=== PATIENT | female | born 1985 | race Caucasian/White ===

== ENCOUNTER 2017-09-20 16:28 | Emergency (ER) | payer SELFPAY ==
[~2017-09-20] VITALS: Ht 157.5 cm; Wt 56.7 kg
[~2017-09-20 16:28] MED LIST: ACHD5005 PO; AZIT-21 PO; BUTA1TAB55 PO; HYDR-3583; TRAM-21 PO
--- NOTE | 2017-09-20 17:45 | ED General ---
General Chief Complaint: General Problems/Pain Stated Complaint: BACK AND RIB PAIN Nursing Triage Note: AMB TO ROOM REPORTS SHE HAS HAD COUGH FOR 2MONTHS 2 WEEKS AGO SAW [facility] TOLD IT WAS A VIRUS HAS BEEN USING INHALER. LAST NIGHT WAS COUGHING SO HARD FELT POP IN BACK. Nursing Sepsis Screen: No Definite Risk Source of Information: Patient Exam Limitations: No Limitations History of Present Illness Date Seen by Provider: Sep 20, 2017 Time Seen by Provider: 17:44 Initial Comments To ER with a nonproductive cough without fever for 2 months. Last night the cough is rather intense and she felt pain on the posterolateral chest. Timing/Duration: 1-2 Days Severity: Moderate Associated Systoms: Cough Allergies and Home Medications Allergies Coded Allergies: Penicillins (Unverified Allergy, Mild, 02/20/09) penicillin G (Verified Allergy, Unknown, 09/01/05) sulfamethoxazole (Verified Allergy, Unknown, 09/20/17) trimethoprim (Verified Allergy, Unknown, 09/20/17) Home Medications No Active Prescriptions or Reported Meds Constitutional: see HPI EENTM: see HPI Respiratory: see HPI, cough Cardiovascular: no symptoms reported Genitourinary: no symptoms reported Musculoskeletal: see HPI Skin: no symptoms reported Psychiatric/Neurological: No Symptoms Reported Hematologic/Lymphatic: No Symptoms Reported Past Sqrnnjq-Mcexsb-Ttxtty Hx Patient Social History Alcohol Use: Denies Use Recreational Drug Use: No Smoking Status: Current Everyday Smoker Recent Foreign Travel: No Contact w/Someone Who Travel: No Recent Infectious Disease Expo: No Immunizations Up To Date Tetanus Booster (TDap): Less than 5yrs Seasonal Allergies Seasonal Allergies: No Surgeries History of Surgeries: Yes (L KNEE FLUID REMOVAL, ) Surgeries: Hysterectomy, Oophorectomy Respiratory History of Respiratory Disorde: No Cardiovascular History of Cardiac Disorders: No Neurological History of Neurological Disord: No Reproductive System Hx Reproductive Disorders: No Sexually Transmitted Disease: No HIV/AIDS: No Female Reproductive Disorders: Ovarian 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 Gastrointestinal History of Gastrointestinal Di: No Musculoskeletal History of Musculoskeletal Dis: No Endocrine History of Endocrine Disorders: No Cancer History of Cancer: No Psychosocial History of Psychiatric Problem: No Integumentary History of Skin or Integumenta: No Blood Transfusions History of Blood Disorders: No Adverse Reaction to a Blood Tr: No Physical Exam Vital Signs Vital Signs - First Documented 09/20/17 16:29 Temp 99.2 Pulse 82 Resp 18 B/P (MAP) 128/92 (104) Pulse Ox 98 Capillary Refill : Less Than 3 Seconds General Appearance: No Apparent Distress, WD/WN Eyes: Bilateral Eye Normal Inspection, Bilateral Eye PERRL, Bilateral Eye EOMI HEENT: PERRL/EOMI, TMs Normal Neck: Full Range of Motion, Normal Inspection Respiratory: Normal Breath Sounds, No Accessory Muscle Use, No Respiratory Distress Cardiovascular: Regular Rate, Rhythm, Normal Peripheral Pulses Gastrointestinal: Normal Bowel Sounds, Non Tender, Soft Extremity: Normal Capillary Refill, No Calf Tenderness Neurologic/Psychiatric: Alert, Oriented x3 Skin: Normal Color, Warm/Dry Progress/Results/Core Measures Suspected Sepsis Recent Fever Within 48 Hours: No Infection Criteria Present: None New/Unexplained Altered Menta: No Sepsis Screen: No Definite Risk Sepsis Diagnosis: SIRS Temperature:99.2 Pulse: 82 Respiratory Rate: 18 Blood Pressure 128 /92 Mean: 104 Results/Orders My Orders Orders - GERALD ESTRADA APRN Ribs/Unilateral With Chest (09/20/17 17:26) Vital Signs/I&O Vital Sign - Last 12Hours 09/20/17 16:29 Temp 99.2 Pulse 82 Resp 18 B/P (MAP) 128/92 (104) Pulse Ox 98 Capillary Refill : Less Than 3 Seconds Blood Pressure Mean: 104 Diagnostic Imaging Diagonstic Imaging: Xray Plain Films/CT/US/NM/MRI: chest Comments NAME: YENY CARR MED REC#: [id number] PT STATUS: REG ER : 1985 PHYSICIAN: GERALD ESTRADA APRN ADMIT DATE: 09/20/17/ER Draft Date of Exam:09/20/17 RIBS/UNILATERAL WITH CHEST INDICATION: Right-sided rib pain x1 day with cough. TECHNIQUE: Single view chest along with 3 views of right ribs at 6:08 PM. CORRELATION STUDY: 06/06/2012 FINDINGS: The heart size, mediastinal configuration and pulmonary vascularity are within normal limits. The lungs are clear with no consolidating infiltrate. There is no significant effusion or pneumothorax. No acute displaced right rib fracture. IMPRESSION: 1. No radiographic findings to suggest acute abnormality of the chest. 2. Negative for right rib fracture. Dictated on workstation # [id number] Dict: 09/20/17 1804 Trans: 09/20/17 1817 [facility] [id number] Interpreted by: MISSY SALOMON DO Electronically signed by: Departure Impression Impression: Primary Impression: Chest wall pain Disposition: HOME, SELF-CARE Condition: Stable Departure-Patient Inst. Decision time for Depature: 18:19 Referrals: RAE BOYLE MD (PCP) Primary Care Physician Patient Instructions: Pleuritic Chest Pain (DC) Add. Discharge Instructions: 1. Medication as directed 2. Return to ER for any concerns 3. Follow-up with her doctor next week All discharge instructions reviewed with patient and/or family. Voiced understanding. Scripts Benzonatate (Tessalon Perle) 100 Mg Capsule 100 MG PO TID, #15 CAP Prov: GERALD ESTRADA APRN 09/20/17 Naproxen Sodium (Anaprox Ds) 550 Mg Tablet 550 MG PO BID Y for PAIN-MODERATE, #20 TAB Prov: GERALD ESTRADA APRN 09/20/17 GERALD ESTRADA APRN Sep 20, 2017 17:45
--- NOTE | 2017-09-20 18:17 | Diagnostic Imaging Report ---
INDICATION: Right-sided rib pain x1 day with cough. TECHNIQUE: Single view chest along with 3 views of right ribs at 6:08 PM. CORRELATION STUDY: 06/06/2012 FINDINGS: The heart size, mediastinal configuration and pulmonary vascularity are within normal limits. The lungs are clear with no consolidating infiltrate. There is no significant effusion or pneumothorax. No acute displaced right rib fracture. IMPRESSION: 1. No radiographic findings to suggest acute abnormality of the chest. 2. Negative for right rib fracture. Dictated by: Dictated on workstation # [id number]
[2017-09-20] MEDS ORDERED: BENZ-13 PO (18:21)
[2017-09-20] MEDS ORDERED: NAPR-1070 PO (18:21)
[2017-09-20 19:08] VITALS: BP 108/73
== END 2017-09-20 19:08 | disposition home or self-care (01) ==
LOC: EDUNIT# 16:28 → ER 16:30
DX: R07.89 Other chest pain (principal); F17.200 Nicotine dependence, unspecified, uncomplicated; Z88.0 Allergy status to penicillin; Z90.710 Acquired absence of both cervix and uterus; Z87.448 Personal history of other diseases of urinary system; Z88.2 Allergy status to sulfonamides; Z88.8 Allergy status to other drugs, medicaments and biological substances
CPT/HCPCS: 71101

== ENCOUNTER 2018-04-07 19:50 | Emergency (ER) | payer OTHER ==
[~2018-04-07] VITALS: Ht 157.5 cm; Wt 63.5 kg
[~2018-04-07 19:50] MED LIST changes: +BENZ100C18 PO; +NAPR-1070 PO
[2018-04-07] MEDS ORDERED: NS IV 1000 ML 1,000 ML IV SCH (20:00)
[2018-04-07 20:57] LABS: BASOPHILS # (AUTO) 0.1 10^3/uL (0.0-0.1); BASOPHILS % (AUTO) 1 % (0-10); EOSINOPHILS # (AUTO) 0.4 10^3/uL (0.0-0.3); EOSINOPHILS % (AUTO) 4 % (0-10); HEMATOCRIT 41 % (35-52); HEMOGLOBIN 14.6 G/DL (11.5-16.0); LYMPHOCYTES # (AUTO) 2.5 X 10^3 (1.0-4.0); LYMPHOCYTES % (AUTO) 23 % (12-44); MEAN CORPUSCULAR HEMOGLOBIN 33 PG (25-34); MEAN CORPUSCULAR HGB CONC 35 G/DL (32-36); MEAN CORPUSCULAR VOLUME 92 FL (80-99); MEAN PLATELET VOLUME 8.2 FL (7.4-10.4); MONOCYTES # (AUTO) 0.9 X 10^3 (0.0-1.0); MONOCYTES % (AUTO) 8 % (0-12); NEUTROPHILS # (AUTO) 6.8 X 10^3 (1.8-7.8); NEUTROPHILS % (AUTO) 64 % (42-75); PLATELET COUNT 309 10^3/uL (130-400); RED BLOOD COUNT 4.48 10^6/uL (4.35-5.85); RED CELL DISTRIBUTION WIDTH 12.2 % (10.0-14.5); WHITE BLOOD COUNT 10.7 10^3/uL (4.3-11.0)
--- NOTE | 2018-04-07 20:58 | Diagnostic Imaging Report ---
PROCEDURE: CT head and CT cervical spine without contrast. TECHNIQUE: Multiple contiguous axial images were obtained through the brain and cervical spine without the use of intravenous contrast. Sagittal and coronal reformations through the cervical spine were then performed. DATE: April 07, 2018. COMPARISON: None. INDICATION: 32-year-old female, syncope. Headache, confusion, dizziness. Neck pain. FINDINGS: There is an area of masslike CSF attenuation extra-axial in location in the region of the left anterior middle cranial fossa most likely reflecting an arachnoid cyst. The ventricles and cerebral spinal fluid spaces are of normal size and configuration for the patient's age. There is no mass effect or midline shift. There is no acute intracranial hemorrhage. There is no abnormal extra-axial fluid collection. The visualized portions of the paranasal sinuses, mastoid air cells and middle ears are well aerated. There is no identified facet joint subluxation or dislocation. There is no asymmetric widening of the cervical disc spaces. There is no pronounced cervical disc height loss. CT is limited for assessment of disc pathology as well as additional non-bony causes of foraminal and spinal stenosis. There is no prevertebral soft tissue swelling. There is no identified fracture of the cervical spine. The visualized portions of the lung apices are clear. IMPRESSION: 1. No identified acute intracranial abnormality. 2. No identified acute abnormality of the cervical spine. 3. Left anterior middle cranial fossa arachnoid cyst. Dictated by: Dictated on workstation # [id number]
[2018-04-07 21:16] LABS: ALBUMIN 4.3 GM/DL (3.2-4.5); BILIRUBIN,TOTAL 0.4 MG/DL (0.1-1.0); CALCIUM 9.3 MG/DL (8.5-10.1); CREATININE SERUM 1.29 MG/DL (0.60-1.30); POTASSIUM 4.6 MMOL/L (3.6-5.0)
--- NOTE | 2018-04-07 21:45 | ED Syncope ---
General Chief Complaint: Dizziness/Syncope Stated Complaint: FALL Nursing Triage Note: PT BROUGHT IN BY EMS FROM [facility] WITH COMPLAINT OF SYNCOPABLE EPISODE. PT WAS STANDING AT COUNTER, PASSED OUT AND WOKE UP ON FLOOR. PT IS COMPLAINING OF HEADACHE. STATES SHE WAS DIZZY PRIOR TO PASSING OUT. Source of Information: Patient Exam Limitations: No Limitations History of Present Illness Date Seen by Provider: Apr 07, 2018 Time Seen by Provider: 19:50 Initial Comments The patient is a 32 year old female who was brought in to the emergency room by [facility] after she was standing in line at [facility] when she passed out. She is in a c-collar in arrival to the emergency room complaining of head, neck pain. She reports being dizzy prior to passing out today. Denies being dizzy now. Timing/Prior Episodes: No Prior History Symptoms Prior to Episode: Other (Dizzy ) Current Symptoms: Headache, Other (neck pain) Allergies and Home Medications Allergies Coded Allergies: Penicillins (Unverified Allergy, Mild, 02/20/09) penicillin G (Verified Allergy, Unknown, 09/01/05) sulfamethoxazole (Verified Allergy, Unknown, 09/20/17) trimethoprim (Verified Allergy, Unknown, 09/20/17) Home Medications Benzonatate 100 Mg Capsule, 100 MG PO TID Prescribed by: GERALD ESTRADA on 09/20/171820 Naproxen Sodium 550 Mg Tablet, 550 MG PO BID PRN for PAIN-MODERATE Prescribed by: GERALD ESTRADA on 09/20/171820 Patient Home Medication List Home Medication List Reviewed: Yes Review of Systems Constitutional: see HPI; No chills, No fever Musculoskeletal: see HPI, neck pain Psychiatric/Neurological: See HPI, Headache All Other Systems Reviewed Negative Unless Noted: Yes Past Aixkwow-Eknocz-Iuzjqc Hx Past Med/Social Hx: Reviewed Nursing Past Med/Soc Hx Patient Social History Alcohol Use: Denies Use Recreational Drug Use: No Smoking Status: Current Everyday Smoker Type Used: Cigarettes Recent Foreign Travel: No Contact w/Someone Who Travel: No Recent Infectious Disease Expo: No Immunizations Up To Date Tetanus Booster (TDap): Less than 5yrs Seasonal Allergies Seasonal Allergies: No Past Medical History Surgeries: Yes (L KNEE FLUID REMOVAL, ) Hysterectomy, Oophorectomy Respiratory: No Cardiac: No Neurological: No Reproductive Disorders: No Female Reproductive Disorders: Ovarian 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 oz. [id number]; BMI Method:Stated General Appearance: No Apparent Distress, WD/WN HEENT: PERRL/EOMI, TMs Normal, Normal ENT Inspection, Pharynx Normal Neck: Normal Inspection, Supple, Tender Midline, Other (C-collar in place) Cardiovascular: Regular Rate, Rhythm, No Edema, No Gallop, No JVD, No Murmur, Normal Peripheral Pulses Respiratory: Chest Non Tender, Lungs Clear, Normal Breath Sounds, No Accessory Muscle Use, No Respiratory Distress Gastrointestinal: Normal Bowel Sounds, No Organomegaly, No Pulsatile Mass, Non Tender, Soft Neurologic/Psychiatric: Alert, Oriented x3, Normal Mood/Affect Cranial Nerves: Normal Hearing, Normal Speech, PERRL Coordination/Gait: Normal Finger to Nose Motor/Sensory: No Motor Deficit, No Sensory Deficit Skin: Normal Color, Warm/Dry Progress/Results/Core Measures Results/Orders Lab Results Laboratory Tests Test 04/07/18 20:50 Range/Units White Blood Count 10.7 4.3-11.0 10^3/uL Red Blood Count 4.48 4.35-5.85 10^6/uL Hemoglobin 14.6 11.5-16.0 G/DL Hematocrit 41 35-52 % Mean Corpuscular Volume 92 80-99 FL Mean Corpuscular Hemoglobin 33 25-34 PG Mean Corpuscular Hemoglobin Concent 35 32-36 G/DL Red Cell Distribution Width 12.2 10.0-14.5 % Platelet Count 309 130-400 10^3/uL Mean Platelet Volume 8.2 7.4-10.4 FL Neutrophils (%) (Auto) 64 42-75 % Lymphocytes (%) (Auto) 23 12-44 % Monocytes (%) (Auto) 8 0-12 % Eosinophils (%) (Auto) 4 0-10 % Basophils (%) (Auto) 1 0-10 % Neutrophils # (Auto) 6.8 1.8-7.8 X 10^3 Lymphocytes # (Auto) 2.5 1.0-4.0 X 10^3 Monocytes # (Auto) 0.9 0.0-1.0 X 10^3 Eosinophils # (Auto) 0.4 H 0.0-0.3 10^3/uL Basophils # (Auto) 0.1 0.0-0.1 10^3/uL Sodium Level 136 135-145 MMOL/L Potassium Level 4.6 3.6-5.0 MMOL/L Chloride Level 103 98-107 MMOL/L Carbon Dioxide Level 21 21-32 MMOL/L Anion Gap 12 5-14 MMOL/L Blood Urea Nitrogen 14 7-18 MG/DL Creatinine 1.29 0.60-1.30 MG/DL Estimat Glomerular Filtration Rate 47 BUN/Creatinine Ratio 11 Glucose Level 96 70-105 MG/DL Calcium Level 9.3 8.5-10.1 MG/DL Corrected Calcium 9.1 8.5-10.1 MG/DL Total Bilirubin 0.4 0.1-1.0 MG/DL Aspartate Amino Transf (AST/SGOT) 12 5-34 U/L Alanine Aminotransferase (ALT/SGPT) 13 0-55 U/L Alkaline Phosphatase 65 40-136 U/L Total Protein 7.0 6.4-8.2 GM/DL Albumin 4.3 3.2-4.5 GM/DL My Orders Orders - PERLA BENAVIDES Ct Head/Cervical Spine Wo (04/07/18 19:57) Ns Iv 1000 Ml (Sodium Chloride 0.9%) (04/07/18 20:00) Comprehensive Metabolic Panel (04/07/18 19:57) Saline Lock/Iv-Start (04/07/18 19:57) Cbc With Automated Diff (04/07/18 19:57) Ekg Tracing (04/07/18 19:57) Vital Signs/I&O 04/07/18 04/07/18 19:54 21:47 Pulse 104 88 Resp 20 20 B/P (MAP) 118/82 (94) 115/78 (94) Pulse Ox 100 100 O2 Delivery Room Air Blood Pressure Mean: 94 Progress Progress Note : Time: 21:40 Progress Note I have seen and evaluated the patient. C-Collar was removed at this time. I have informed her of imaging and laboratory findings. She is to follow up in regards to the finding of the cyst with PCP to further evaluate the findings. She agrees with plan of care, return precautions were given. EKG : EKG Time: 20:03 Rate: 93 Rhythm: Normal Sinus Intervals: Normal ECG Comparisson: No Previous ECG Available ECG Impression: Normal Comment Reviewed by Dr. Rivero. Diagnostic Imaging Diagonstic Imaging: CT Plain Films/CT/US/NM/MRI: c-spine, head Comments NAME: YENY CARR [facility] REC#: [id number] PHYSICIAN: PERLA BENAVIDES CC: PERLA BENAVIDES; VU BECK MD Page 2 of 2 RADIOLOGY REPORT VIA [facility], [place], [place] CC: PERLA BENAVIDES; VU BECK MD Page 1 of 1 RADIOLOGY REPORT NAME: YENY CARR [facility] REC#: [id number] PT STATUS: REG ER : 1985 PHYSICIAN: PERLA BENAVIDES ADMIT DATE: 04/07/18/ER Signed Date of Exam: 04/07/18 CT HEAD/CERVICAL SPINE WO PROCEDURE: CT head and CT cervical spine without contrast. TECHNIQUE: Multiple contiguous axial images were obtained through the brain and cervical spine without the use of intravenous contrast. Sagittal and coronal reformations through the cervical spine were then performed. DATE: April 07, 2018. COMPARISON: None. INDICATION: 32-year-old female, syncope. Headache, confusion, dizziness. Neck pain. FINDINGS: There is an area of masslike CSF attenuation extra-axial in location in the region of the left anterior middle cranial fossa most likely reflecting an arachnoid cyst. The ventricles and cerebral spinal fluid spaces are of normal size and configuration for the patient's age. There is no mass effect or midline shift. There is no acute intracranial hemorrhage. There is no abnormal extra-axial fluid collection. The visualized portions of the paranasal sinuses, mastoid air cells and middle ears are well aerated. There is no identified facet joint subluxation or dislocation. There is no asymmetric widening of the cervical disc spaces. There is no pronounced cervical disc height loss. CT is limited for assessment of disc pathology as well as additional non-bony causes of foraminal and spinal stenosis. There is no prevertebral soft tissue swelling. There is no identified fracture of the cervical spine. The visualized portions of the lung apices are clear. IMPRESSION: 1. No identified acute intracranial abnormality. 2. No identified acute abnormality of the cervical spine. 3. Left anterior middle cranial fossa arachnoid cyst. Dictated by: Dictated on workstation # [id number] Dict: 04/07/182048 Trans: 04/07/182145 Interpreted by: VU BECK MD Electronically signed by: VU BECK MD 04/07/182145 Reviewed: Reviewed by Me Departure Impression Primary Impression: Syncope Disposition: 01 HOME, SELF-CARE Condition: Stable Departure-Patient Inst. Decision time for Depature: 21:44 Referrals: RAE BOYLE MD (PCP) Primary Care Physician Patient Instructions: Syncope (Fainting) (DC) Add. Discharge Instructions: Follow-up with Dr. Boyle regarding your CT findings within 1 week. Return back to the emergency room should you have any other similar symptoms or any other concerns as needed. All discharge instructions reviewed with patient and/or family. Voiced understanding. PERLA BENAVIDES Apr 07, 2018 21:45
[2018-04-07 21:47] VITALS: BP 115/78
== END 2018-04-07 21:47 | disposition home or self-care (01) ==
LOC: EDUNIT# 19:50 → ER 19:52
DX: R55 Syncope and collapse (principal); R51 Headache; F17.210 Nicotine dependence, cigarettes, uncomplicated; Z87.448 Personal history of other diseases of urinary system; Z90.710 Acquired absence of both cervix and uterus; Z88.0 Allergy status to penicillin; Z88.2 Allergy status to sulfonamides; Z88.8 Allergy status to other drugs, medicaments and biological substances
CPT/HCPCS: 36415; 70450; 72125; 80053; 85025; 93005

== ENCOUNTER → 2018-04-16 | Outpatient (CLI) | payer OTHER ==
[~2018-04-16] MED LIST changes: +GADOBUTROL 7.5 MMOL/7.5 ML (GADAVIST) VIAL IV ONE
--- NOTE | 2018-04-16 09:44 | Diagnostic Imaging Report ---
PROCEDURE: MR imaging of the brain with and without contrast. TECHNIQUE: Multiplanar, multisequence MR imaging of the brain was performed with and without contrast. INDICATION: Fainting episode one week ago. The ventricles and sulci are within normal limits. There is a CSF signal intensity lesion along the left anterior temporal convexity measuring 3.0 x 1.0 cm consistent with an arachnoid cyst. This is similar to the CT study of the brain performed on 04/07/2018. No midline shift is seen. The normal expected flow-void within the carotid siphons are seen. No diffusion restriction is identified. There is no acute intra-axial or extra-axial hemorrhage. No abnormal enhancement following contrast administration is seen. The corpus callosum is unremarkable. The sella and parasellar structures are unremarkable. IMPRESSION: Essentially unremarkable pre-and postcontrast MRI of the brain with exception of an arachnoid cyst along the left anterior temporal convexity. No acute feature is detected. Dictated by: Dictated on workstation # [id number]
== END ==
LOC: RAD 08:34
PROVIDERS: ATTEND Family Medicine
DX: G93.0 Cerebral cysts (principal)
CPT/HCPCS: 70553

== ENCOUNTER 2019-05-26 13:45 | Emergency (ER) | payer SELFPAY ==
[~2019-05-26] VITALS: Ht 157.4 cm; Wt 52.8 kg
[~2019-05-26 13:45] MED LIST changes: -GADOBUTROL 7.5 MMOL/7.5 ML (GADAVIST) VIAL IV ONE
[2019-05-26 14:16] LABS: BILIRUBIN,URINE NEGATIVE (NEGATIVE); CLARITY,URINE CLEAR; COLOR,URINE YELLOW; GLUCOSE, URINE (UA) NEGATIVE (NEGATIVE); KETONES,URINE NEGATIVE (NEGATIVE); LEUKOCYTE ESTERASE ,URINE 1+ (NEGATIVE); NITRITE,URINE NEGATIVE (NEGATIVE); PH,URINE 6 (5-9); PROTEIN,URINE 2+ (NEGATIVE)
[2019-05-26 14:18] LABS: BASOPHILS # (AUTO) 0.1 10^3/uL (0.0-0.1); BASOPHILS % (AUTO) 1 % (0-10); EOSINOPHILS # (AUTO) 0.4 10^3/uL (0.0-0.3); EOSINOPHILS % (AUTO) 4 % (0-10); HEMATOCRIT 43 % (35-52); HEMOGLOBIN 14.7 G/DL (11.5-16.0); LYMPHOCYTES % (AUTO) 20 % (12-44); MEAN CORPUSCULAR HEMOGLOBIN 32 PG (25-34); MEAN CORPUSCULAR HGB CONC 34 G/DL (32-36); MEAN CORPUSCULAR VOLUME 93 FL (80-99); MEAN PLATELET VOLUME 8.4 FL (7.4-10.4); MONOCYTES # (AUTO) 0.8 X 10^3 (0.0-1.0); MONOCYTES % (AUTO) 8 % (0-12); NEUTROPHILS # (AUTO) 6.8 X 10^3 (1.8-7.8); NEUTROPHILS % (AUTO) 68 % (42-75); PLATELET COUNT 299 10^3/uL (130-400); WHITE BLOOD COUNT 10.1 10^3/uL (4.3-11.0)
[2019-05-26] MEDS ORDERED: NS IV 1000 ML 1,000 ML IV SCH (14:27)
[2019-05-26 14:28] LABS: BACTERIA,URINE MODERATE /HPF
[2019-05-26] MEDS ORDERED: LIDOCAINE 2% VISCOUS 15 ML UDC PO ONE (14:30)
[2019-05-26] MEDS ORDERED: ANTACID SUSP 30 ML UDC (MYLANTA) PO ONE (14:30)
[2019-05-26 14:43] LABS: ALANINE AMINOTRANSFERASE 9 U/L (0-55); ALBUMIN 3.7 GM/DL (3.2-4.5); ALKALINE PHOSPHATASE 52 U/L (40-136); BILIRUBIN,TOTAL 0.3 MG/DL (0.1-1.0); BUN/CREATININE RATIO 9; CALCIUM 8.5 MG/DL (8.5-10.1); CARBON DIOXIDE 25 MMOL/L (21-32); CHLORIDE 102 MMOL/L (98-107); CREATININE SERUM 0.86 MG/DL (0.60-1.30); GFR ESTIMATED > 60; GLUCOSE 119 MG/DL (70-105); POTASSIUM 3.5 MMOL/L (3.6-5.0); SODIUM 137 MMOL/L (135-145); TOTAL PROTEIN 6.1 GM/DL (6.4-8.2)
--- NOTE | 2019-05-26 14:43 | ED GI ---
General Chief Complaint: Abdominal/GI Problems Stated Complaint: CHEST/ESOPHAGUS PAIN/VOMITING Nursing Triage Note: EPIGASTRIC PAIN WITH VOMITING FOR 1.5 WEEKS THAT IS NOT GETTING BETTER. PT STATES SHE HAS BEEN TRYING HERSELF FOR ACID REFLUX BUT THINKS IT MIGHT BE SOMETHING ELSE. Sepsis Screen: No Definite Risk History of Present Illness Date Seen by Provider: May 26, 2019 Time Seen by Provider: 14:00 Initial Comments 33-year-old female presents for approximately 2 week history of acid reflux. She has tried Pepto-Bismol she has not tried any H2 blockers or PPIs. She reports occasional vomiting. She has had a previous appendectomy, gallbladder still intact. She tolerates clear liquids. She reports using marijuana daily. She normally smokes one pack of cigarettes daily, however she's been actually a fourth of a pack since GI symptoms began. She did have a colonoscopy approximately 14 years ago and was told he had polyps. She's had no follow-up colonoscopy. Timing/Duration: 1 Week, Intermittent Severity/Quality: Mild Location: Epigastric Associated Symptoms: Heartburn, Nausea/Vomiting Allergies and Home Medications Allergies Coded Allergies: Penicillins (Unverified Allergy, Mild, 02/20/09) penicillin G (Verified Allergy, Unknown, 09/01/05) sulfamethoxazole (Verified Allergy, Unknown, 09/20/17) trimethoprim (Verified Allergy, Unknown, 09/20/17) Home Medications Ciprofloxacin HCl 500 Mg Tablet, 500 MG PO BID Prescribed by: ELOISE AMARO on 05/26/19 1503 Famotidine 40 Mg Tablet, 40 MG PO HS Prescribed by: ELOISE AMARO on 05/26/19 1502 Pantoprazole Sodium 40 Mg Tablet.dr, 40 MG PO DAILY Prescribed by: ELOISE AMARO on 05/26/19 1502 Patient Home Medication List Home Medication List Reviewed: Yes Review of Systems Review of Systems Constitutional: no symptoms reported, see HPI Gastrointestinal: See HPI, Abdominal Pain; Denies Constipated, Denies Diarrhea, Denies Difficulty Swallowing; Nausea, Poor Appetite; Denies Poor Fluid Intake, Denies Rectal Bleeding; Vomiting All Other Systems Reviewed Negative Unless Noted: Yes Past Vhbhwco-Bnfobv-Fcqldf Hx Past Med/Social Hx: Reviewed and Corrections made Patient Social History Alcohol Use: Occasionally Uses Recreational Drug Use: Yes Drug of Choice: POT Smoking Status: Current Everyday Smoker Type Used: Cigarettes Recent Foreign Travel: No Contact w/Someone Who Travel: No Recent Infectious Disease Expo: No Immunizations Up To Date Tetanus Booster (TDap): Less than 5yrs Seasonal Allergies Seasonal Allergies: No Past Medical History Surgeries: Yes (L KNEE FLUID REMOVAL, ) Hysterectomy, Oophorectomy Respiratory: No Cardiac: No Neurological: No Reproductive Disorders: No 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 oz. 63.465462kl; 21.00 BMI Method:Stated General Appearance: WD/WN, no apparent distress HEENT: PERRL/EOMI, normal ENT inspection, TMs normal, pharynx normal Neck: non-tender, full range of motion, supple, normal inspection Respiratory: chest non-tender, lungs clear, normal breath sounds Cardiovascular: normal peripheral pulses, regular rate, rhythm Gastrointestinal: normal bowel sounds, soft; No distended (epigastric), No guarding, No rebound; tenderness, other (negative Monique sign) Extremities: normal range of motion, non-tender, normal inspection, normal capillary refill Neurologic/Psychiatric: no motor/sensory deficits, alert, normal mood/affect, oriented x 3 Skin: normal color, warm/dry Progress/Results/Core Measures Results/Orders Lab Results Laboratory Tests Test 05/26/19 13:59 05/26/19 14:10 Range/Units Urine Color YELLOW Urine Clarity CLEAR Urine pH 6 5-9 Urine Specific [place] 1.020 1.016-1.022 Urine Protein 2+ H NEGATIVE Urine Glucose (UA) NEGATIVE NEGATIVE Urine Ketones NEGATIVE NEGATIVE Urine Nitrite NEGATIVE NEGATIVE Urine Bilirubin NEGATIVE NEGATIVE Urine Urobilinogen 1 NORMAL MG/DL Urine Leukocyte Esterase 1+ H NEGATIVE Urine RBC (Auto) 2+ H NEGATIVE Urine RBC NONE /HPF Urine WBC 5-10 H /HPF Urine Squamous Epithelial Cells 10-25 H /HPF Urine Crystals NONE /LPF Urine Bacteria MODERATE H /HPF Urine Casts NONE /LPF Urine Mucus MODERATE H /LPF Urine Culture Indicated YES Urine Opiates Screen NEGATIVE NEGATIVE Urine Oxycodone Screen NEGATIVE NEGATIVE Urine Methadone Screen NEGATIVE NEGATIVE Urine Propoxyphene Screen NEGATIVE NEGATIVE Urine Barbiturates Screen NEGATIVE NEGATIVE Ur Tricyclic Antidepressants Screen NEGATIVE NEGATIVE Urine Phencyclidine Screen NEGATIVE NEGATIVE Urine Amphetamines Screen NEGATIVE NEGATIVE Urine Methamphetamines Screen NEGATIVE NEGATIVE Urine Benzodiazepines Screen NEGATIVE NEGATIVE Urine Cocaine Screen NEGATIVE NEGATIVE Urine Cannabinoids Screen POSITIVE H NEGATIVE White Blood Count 10.1 4.3-11.0 10^3/uL Red Blood Count 4.57 4.35-5.85 10^6/uL Hemoglobin 14.7 11.5-16.0 G/DL Hematocrit 43 35-52 % Mean Corpuscular Volume 93 80-99 FL Mean Corpuscular Hemoglobin 32 25-34 PG Mean Corpuscular Hemoglobin Concent 34 32-36 G/DL Red Cell Distribution Width 12.0 10.0-14.5 % Platelet Count 299 130-400 10^3/uL Mean Platelet Volume 8.4 7.4-10.4 FL Neutrophils (%) (Auto) 68 42-75 % Lymphocytes (%) (Auto) 20 12-44 % Monocytes (%) (Auto) 8 0-12 % Eosinophils (%) (Auto) 4 0-10 % Basophils (%) (Auto) 1 0-10 % Neutrophils # (Auto) 6.8 1.8-7.8 X 10^3 Lymphocytes # (Auto) 2.0 1.0-4.0 X 10^3 Monocytes # (Auto) 0.8 0.0-1.0 X 10^3 Eosinophils # (Auto) 0.4 H 0.0-0.3 10^3/uL Basophils # (Auto) 0.1 0.0-0.1 10^3/uL Sodium Level 137 135-145 MMOL/L Potassium Level 3.5 L 3.6-5.0 MMOL/L Chloride Level 102 98-107 MMOL/L Carbon Dioxide Level 25 21-32 MMOL/L Anion Gap 10 5-14 MMOL/L Blood Urea Nitrogen 8 7-18 MG/DL Creatinine 0.86 0.60-1.30 MG/DL Estimat Glomerular Filtration Rate > 60 BUN/Creatinine Ratio 9 Glucose Level 119 H 70-105 MG/DL Calcium Level 8.5 8.5-10.1 MG/DL Corrected Calcium 8.7 8.5-10.1 MG/DL Total Bilirubin 0.3 0.1-1.0 MG/DL Aspartate Amino Transf (AST/SGOT) 13 5-34 U/L Alanine Aminotransferase (ALT/SGPT) 9 0-55 U/L Alkaline Phosphatase 52 40-136 U/L Troponin I < 0.028 <0.028 NG/ML Total Protein 6.1 L 6.4-8.2 GM/DL Albumin 3.7 3.2-4.5 GM/DL My Orders Orders - ELOISE AMARO Cbc With Automated Diff (05/26/19 13:57) Comprehensive Metabolic Panel (05/26/19 13:57) Ua Culture If Indicated (05/26/19 13:57) Ekg Tracing (05/26/19 13:57) Troponin I (05/26/19 13:58) Ed Iv/Invasive Line Start (05/26/19 14:27) Ns Iv 1000 Ml (Sodium Chloride 0.9%) (05/26/19 14:27) Lidocaine 2% Viscous 15 Ml (Xylocaine Vi (05/26/19 14:30) Antacid Suspension (Mylanta Suspension (05/26/19 14:30) Drug Screen Stat (Urine) (05/26/19 14:28) Urine Culture (05/26/19 13:59) Pantoprazole Injection (Protonix Injecti (05/26/19 15:00) Medications Given in ED Current Medications Medications Dose Ordered Sig/Kelley Route Start Time Stop Time Status Last Admin Dose Admin Al Hydrox/Mg Hydrox/Simethicone 30 ml ONCE ONCE PO 05/26/19 14:30 05/26/19 14:31 DC 05/26/19 14:39 30 ML Lidocaine HCl 15 ml ONCE ONCE PO 05/26/19 14:30 05/26/19 14:31 DC 05/26/19 14:39 15 ML Pantoprazole 40 mg ONCE ONCE IV 05/26/19 15:00 05/26/19 15:01 DC 05/26/19 15:07 40 MG Vital Signs/I&O 05/26/19 05/26/19 13:50 16:20 Temp 36.7 36.7 Pulse 91 60 Resp 16 16 B/P (MAP) 119/83 (95) 101/66 (95) Pulse Ox 100 99 O2 Delivery Room Air Room Air Blood Pressure Mean: 95 Progress Progress Note : Time: 14:00 Progress Note Patient and evaluated, will get labs and EKG. Normal saline 1 L per IV. 1430 Protonix 40 mg per IV. GI cocktail. 1500 patient noted some improvement after the GI cocktail. UA positive for UTI. 1600 patient reports improvement in symptoms. Discharge instructions and return precautions reviewed. Initial ECG Impression Date: May 26, 2019 Initial ECG Impression Time: 13:55 Initial ECG Rate: 59 Initial ECG Rhythm: Normal Sinus Initial ECG Intervals: Normal Initial ECG Intervals CA 172, QRSD 5874, QTc 404, QTc 401. [place] P 69, QRS 48, 67. Initial ECG Impression: Normal Initial ECG Comparisson: No Previous ECG Available Comment Reviewed with Dr. Rivero, agreed with interpretation. Departure Impression Primary Impression: GERD (gastroesophageal reflux disease) Qualified Codes: K21.9 - Gastro-esophageal reflux disease without esophagitis Additional Impression: UTI (urinary tract infection) Qualified Codes: N30.01 - Acute cystitis with hematuria Disposition: HOME, SELF-CARE Condition: Improved Departure-Patient Inst. Decision time for Depature: 16:00 Referrals: SRINIVASA BALDWIN BRETT D DO GAULT, HOLLY R MD (PCP/Family) Primary Care Physician МАРИНА TAFOYA MD Patient Instructions: Urinary Tract Infection, Adult (DC), Acid Reflux (Gastroesophageal Reflux Disease), Adult (DC) Add. Discharge Instructions: Increase water, 16 ounces every 2 hours while awake. Take antibiotic as directed for the urinary tract infection. Empty her bladder every 2 hours while awake. Drink 1 cup of cranberry juice or eat 1 cup of fresh blueberries daily. [place], nonfried foods for the next 2-3 weeks. Follow-up with a general surgeon for continued abdominal pain and to repeat her colonoscopy. (Ranjit Hinojosa or Mariusz) Take the medications for GERD as directed. Return to emergency department for new, urgent health care needs. All discharge instructions reviewed with patient and/or family. Voiced understanding. Scripts Ciprofloxacin HCl (Ciprofloxacin HCl) 500 Mg Tablet 500 MG PO BID, #14 TAB 0 Refills Prov: ELOISE AMARO 05/26/19 Famotidine (Pepcid) 40 Mg Tablet 40 MG PO HS, #30 TAB 0 Refills Prov: ELOISE AMARO 05/26/19 Pantoprazole Sodium (Protonix) 40 Mg Tablet. 40 MG PO DAILY, #30 TAB 0 Refills Prov: ELOISE AMARO 05/26/19 Copy Copies To 1: RAE BOYLE MD, AMY ARNP May 26, 2019 14:43
[2019-05-26] MEDS ORDERED: PANTOPRAZOLE 40 MG (PROTONIX) VIAL IV ONE (15:00)
[2019-05-26] MEDS ORDERED: PANT40TA2 PO (15:02)
[2019-05-26] MEDS ORDERED: FAMO40TA72 PO (15:02)
[2019-05-26] MEDS ORDERED: CIPR500T4 PO (15:03)
[2019-05-26 15:05] LABS: AMPHETAMINE SCREEN, URINE NEGATIVE (NEGATIVE); BARBITURATE SCREEN URINE NEGATIVE (NEGATIVE); BENZODIAZEPINES SCREEN URINE NEGATIVE (NEGATIVE); CANNABINOID SCREEN, URINE POSITIVE (NEGATIVE); COCAINE SCREEN URINE NEGATIVE (NEGATIVE); METHADONE STAT NEGATIVE (NEGATIVE); METHAMPHETAMINE SCREEN URINE S NEGATIVE (NEGATIVE); OPIATE SCREEN URINE NEGATIVE (NEGATIVE); OXYCODONE STAT NEGATIVE (NEGATIVE); PROPOXYPHENE STAT NEGATIVE (NEGATIVE); TRICYCLIC ANTIDEPRESSANTS SCRE NEGATIVE (NEGATIVE)
[2019-05-26 16:20] VITALS: BP 101/66
== END 2019-05-26 16:20 | disposition home or self-care (01) ==
LOC: EDUNIT# 13:45 → ER 13:46
DX: K21.9 Gastro-esophageal reflux disease without esophagitis (principal); N39.0 Urinary tract infection, site not specified; F17.210 Nicotine dependence, cigarettes, uncomplicated; Z90.49 Acquired absence of other specified parts of digestive tract; Z88.0 Allergy status to penicillin; Z88.2 Allergy status to sulfonamides; Z88.1 Allergy status to other antibiotic agents; Z90.710 Acquired absence of both cervix and uterus
CPT/HCPCS: 36415; 80053; 80306; 81000; 84484; 85025; 87088; 93005; 96361; 96374

== ENCOUNTER 2019-06-09 01:08 | Emergency (ER) | payer SELFPAY ==
[~2019-06-09] VITALS: Ht 160 cm; Wt 54.4 kg
[~2019-06-09 01:08] MED LIST changes: +CIPR500T4 PO; +FAMO40TA72 PO; +PANT40TA2 PO
[2019-06-09] MEDS ORDERED: NS IV 500 ML 500 ML IV ONE (01:13)
[2019-06-09] MEDS ORDERED: KETOROLAC 30 MG/ML VIAL IVP ONE (01:15)
[2019-06-09] MEDS ORDERED: LIDOCAINE 1% INJ 20 ML 20 ML VIAL INJ ONE (01:15)
[2019-06-09] MEDS ORDERED: TETANUS,DIPTH,PERTUSS P/F (BOOSTRIX) 0.5 ML VIAL IM ONE (01:15)
--- NOTE | 2019-06-09 01:21 | ED Syncope ---
General Chief Complaint: Trauma-Non Activation Stated Complaint: FALL Source of Information: Patient, EMS Exam Limitations: No Limitations History of Present Illness Date Seen by Provider: Jun 09, 2019 Time Seen by Provider: 01:05 Initial Comments Patient resents to ER by EMS from home with chief complaint she was getting up to about 45 minutes to an hour prior to arrival when she felt a sudden feeling of being hot and then she passed out. She says she was feeling warm and then family states that they heard a thud and immediately went to investigate and found her on the ground. She says this happened once before about a year ago. She is not diabetic has no history of heart disease. She said she was recently getting over a UTI and completed her antibiotics a day or 2 ago. She also recently had a cold but a week ago. She's not having any numbness tingling weakness but she does have pain in her low neck and split her chin open on the left mentum. She thinks is been longer than 5 years since her last tetanus shot. She's also having some pain in her right ribs laterally. She smokes about a pack cigarettes per day and uses marijuana but denies any other recreational drug use or alcohol use. She says her urinary symptoms have long since gone away. Allergies and Home Medications Allergies Coded Allergies: Penicillins (Unverified Allergy, Mild, 02/20/09) penicillin G (Verified Allergy, Unknown, 09/01/05) sulfamethoxazole (Verified Allergy, Unknown, 09/20/17) trimethoprim (Verified Allergy, Unknown, 09/20/17) Home Medications Cefdinir 300 Mg Capsule, 300 MG PO BID Prescribed by: KAR WARNER on 06/09/19520 Ciprofloxacin HCl 500 Mg Tablet, 500 MG PO BID Prescribed by: ELOISE AMARO on 05/26/19 150 Famotidine 40 Mg Tablet, 40 MG PO HS Prescribed by: ELOISE AMARO on 05/26/19 1502 Hydrocodone Bit/Acetaminophen 1 Tab Tab, 1 EACH PO Q4-6HR PRN for PAIN-MODERATE Prescribed by: KAR WARNER on 06/09/19520 L.acidoph & Paracasei,B.lactis 1 Each Capsule, 1 EACH PO BID Prescribed by: KAR WARNER on 06/09/19520 Ofloxacin 5 Ml Drops, 3 DROPS OT BID Prescribed by: KAR WARNER on 06/09/19 0350 Pantoprazole Sodium 40 Mg Tablet.dr, 40 MG PO DAILY Prescribed by: ELOISE AMARO on 05/26/19 1502 Patient Home Medication List Home Medication List Reviewed: Yes Review of Systems Constitutional: No chills, No fever EENTM: No ear discharge, No ear pain Respiratory: No cough, No short of breath Cardiovascular: chest pain (right lateral ribs); No Hx of Intervention; syncope Gastrointestinal: No abdominal pain, No constipation, No diarrhea Genitourinary: No discharge, No dysuria : No Musculoskeletal: No back pain, No joint pain Skin: No pruritus, No rash Psychiatric/Neurological: Denies Headache, Denies Numbness All Other Systems Reviewed Negative Unless Noted: Yes Past Bmxbano-Ebtwfx-Lduzcw Hx Patient Social History Alcohol Use: Occasionally Uses Recreational Drug Use: Yes Drug of Choice: POT Smoking Status: Current Everyday Smoker Type Used: Cigarettes Immunizations Up To Date Tetanus Booster (TDap): Unknown Seasonal Allergies Seasonal Allergies: No Past Medical History Surgeries: Yes (L KNEE FLUID REMOVAL, ) Hysterectomy, Oophorectomy Respiratory: No Cardiac: No Neurological: No Reproductive Disorders: No Female Reproductive Disorders: Ovarian Cyst 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 oz. [id number]; 21.00 BMI Method:Stated General Appearance: WD/WN, Mild Distress HEENT: PERRL/EOMI, TMs Normal, Pharynx Normal, Moist Mucous Membranes, Other (right ear canal has fresh bright red blood and excoriation but no foreign body. No Michael sign, hemotympanum, raccoon eyes. She does have tenderness over the right TMJ) Neck: Full Range of Motion, Normal Inspection, Supple, Tender Midline (C6 and C7) Cardiovascular: Regular Rate, Rhythm, No Edema, Normal Peripheral Pulses Respiratory: No Chest Non Tender (right mid axillary line lower ribs tender to palpation without deformity or crepitus); Lungs Clear, Normal Breath Sounds, No Accessory Muscle Use, No Respiratory Distress Gastrointestinal: Normal Bowel Sounds, No Organomegaly Extremities: Normal Capillary Refill, Normal Inspection, No Pedal Edema Neurologic/Psychiatric: Alert, Oriented x3 Cranial Nerves: Normal Hearing, Normal Speech, PERRL Motor/Sensory: No Motor Deficit, No Sensory Deficit, No Pronator Drift Skin: Other (3 cm linear laceration down to the fascia over the left anterior portion of the mentum) Procedures/Interventions Wound Location: Face Other Wound Location Left anterior mentum Wound Length (cm): 3 Wound's Depth, Shape: linear, sub Q Wound Explored: no foreign body removed Irrigated w/ Saline (ccs): 100 Betadine Prep?: Yes (chlorhexidine) Anesthesia: 1% Lidocaine Volume Anesthetic (ccs): 3 Wound Debrided: minimal Suture: Ethlion Suture Size: 5-0 Number of Sutures: 5 Layer Closure?: 1 Progress Site was cleaned thoroughly with chlorhexidine and sterile saline and gauze. Flushed and infiltrated with 3 cc in a local fashion with 1% lidocaine without epinephrine. When the patient was ascertained to be anesthetized appropriately we then applied 5 simple interrupted 5-0 Ethilon. Patient tolerated procedure well. Usual sterile draping, gloves was employed. Progress/Results/Core Measures Results/Orders Lab Results Laboratory Tests Test 06/09/19 01:05 06/09/19 01:06 06/09/19 02:33 Range/Units Sodium Level 140 135-145 MMOL/L Potassium Level 3.9 3.6-5.0 MMOL/L Chloride Level 106 98-107 MMOL/L Carbon Dioxide Level 21 21-32 MMOL/L Anion Gap 13 5-14 MMOL/L Blood Urea Nitrogen 11 7-18 MG/DL Creatinine 0.90 0.60-1.30 MG/DL Estimat Glomerular Filtration Rate > 60 BUN/Creatinine Ratio 12 Glucose Level 117 H 70-105 MG/DL Calcium Level 8.5 8.5-10.1 MG/DL Corrected Calcium 8.4 L 8.5-10.1 MG/DL Total Bilirubin 0.3 0.1-1.0 MG/DL Aspartate Amino Transf (AST/SGOT) 35 H 5-34 U/L Alanine Aminotransferase (ALT/SGPT) 21 0-55 U/L Alkaline Phosphatase 53 40-136 U/L Troponin I < 0.028 <0.028 NG/ML C-Reactive Protein High Sensitivity 0.06 0.00-0.50 MG/DL B-Type Natriuretic Peptide < 10.0 <100.0 PG/ML Total Protein 6.6 6.4-8.2 GM/DL Albumin 4.1 3.2-4.5 GM/DL White Blood Count 12.9 H 4.3-11.0 10^3/uL Red Blood Count 4.33 L 4.35-5.85 10^6/uL Hemoglobin 14.0 11.5-16.0 G/DL Hematocrit 41 35-52 % Mean Corpuscular Volume 94 80-99 FL Mean Corpuscular Hemoglobin 32 25-34 PG Mean Corpuscular Hemoglobin Concent 35 32-36 G/DL Red Cell Distribution Width 12.2 10.0-14.5 % Platelet Count 276 130-400 10^3/uL Mean Platelet Volume 8.3 7.4-10.4 FL Neutrophils (%) (Auto) 90 H 42-75 % Lymphocytes (%) (Auto) 9 L 12-44 % Monocytes (%) (Auto) 0 0-12 % Eosinophils (%) (Auto) 1 0-10 % Basophils (%) (Auto) 0 0-10 % Neutrophils # (Auto) 11.6 H 1.8-7.8 X 10^3 Lymphocytes # (Auto) 1.1 1.0-4.0 X 10^3 Monocytes # (Auto) 0.0 0.0-1.0 X 10^3 Eosinophils # (Auto) 0.1 0.0-0.3 10^3/uL Basophils # (Auto) 0.0 0.0-0.1 10^3/uL Neutrophils % (Manual) 87 % Lymphocytes % (Manual) 10 % Monocytes % (Manual) 1 % Eosinophils % (Manual) 2 % Urine Color YELLOW Urine Clarity CLEAR Urine pH 6.0 5-9 Urine Specific [place] 1.010 L 1.016-1.022 Urine Protein NEGATIVE NEGATIVE Urine Glucose (UA) NEGATIVE NEGATIVE Urine Ketones NEGATIVE NEGATIVE Urine Nitrite NEGATIVE NEGATIVE Urine Bilirubin NEGATIVE NEGATIVE Urine Urobilinogen 0.2 < = 1.0 MG/DL Urine Leukocyte Esterase NEGATIVE NEGATIVE Urine RBC (Auto) NEGATIVE NEGATIVE Urine RBC NONE /HPF Urine WBC NONE /HPF Urine Squamous Epithelial Cells 2-5 /HPF Urine Crystals NONE /LPF Urine Bacteria MODERATE H /HPF Urine Casts PRESENT /LPF Urine Hyaline Casts 0-2 H /LPF Urine Mucus NEGATIVE /LPF Urine Culture Indicated NO Urine Opiates Screen NEGATIVE NEGATIVE Urine Oxycodone Screen NEGATIVE NEGATIVE Urine Methadone Screen NEGATIVE NEGATIVE Urine Propoxyphene Screen NEGATIVE NEGATIVE Urine Barbiturates Screen NEGATIVE NEGATIVE Ur Tricyclic Antidepressants Screen NEGATIVE NEGATIVE Urine Phencyclidine Screen NEGATIVE NEGATIVE Urine Amphetamines Screen NEGATIVE NEGATIVE Urine Methamphetamines Screen NEGATIVE NEGATIVE Urine Benzodiazepines Screen NEGATIVE NEGATIVE Urine Cocaine Screen NEGATIVE NEGATIVE Urine Cannabinoids Screen POSITIVE H NEGATIVE My Orders Orders - KAR WARNER Ed Iv/Invasive Line Start (06/09/19 01:13) Ns Iv 500 Ml (Sodium Chloride 0.9%) (06/09/19 01:13) Cbc With Automated Diff (06/09/19 01:14) Comprehensive Metabolic Panel (06/09/19:14) Troponin I (06/09/19 01:14) BNP (06/09/19 01:14) Hs C Reactive Protein (06/09/19 01:14) Chest 1 View, Ap/Pa Only (06/09/19 01:14) Ct Head/Cervical Spine Wo (06/09/19 01:14) Ua Culture If Indicated (06/09/19 01:14) Drug Screen Stat (Urine) (06/09/19 01:14) Lidocaine 1% Inj 20 Ml (Xylocaine 1% Inj (06/09/19 01:15) Dipht,Pertuss(Acell),Tet Adult (Boostrix (06/09/19 01:15) Ketorolac Injection (Toradol Injection) (06/09/19 01:15) Continuous Ekg Monitoring (06/09/19 01:14) Ekg Tracing (06/09/19 01:14) Ribs, Right 2-3 Views (06/09/19 01:17) Manual Differential (06/09/19 01:06) Ct Maxillofacial Wo (06/09/19 03:04) Hydrocodone/Apap 5/325 Tablet (Lortab 5 (06/09/19 03:15) Rx-Hydrocodone/Apap 5-325 Mg (Rx-Vicodin (06/09/19 05:30) Cefdinir Capsule (Omnicef Capsule) (06/09/19 05:30) Medications Given in ED Current Medications Medications Dose Ordered Sig/Kelley Route Start Time Stop Time Status Last Admin Dose Admin Acetaminophen/ Hydrocodone Bitart 1 tab ONCE ONCE PO 06/09/19 03:15 06/09/19 03:16 DC 06/09/19 03:14 1 TAB Diphtheria/ Tetanus/Acell Pertussis 0.5 ml ONCE ONCE IM 06/09/19 01:15 06/09/19 01:18 DC 06/09/19 01:35 0.5 ML Ketorolac Tromethamine 30 mg ONCE ONCE IVP 06/09/19 01:15 06/09/19 01:18 DC 06/09/19 01:33 30 MG Lidocaine HCl 20 ml ONCE ONCE INJ 06/09/19 01:15 06/09/19 01:18 DC 06/09/19 01:35 20 ML Sodium Chloride 500 ml @ 0 mls/hr Q0M ONCE IV 06/09/19 01:13 06/09/19 01:14 DC 06/09/19 01:33 500 MLS/HR Progress Progress Note #1: Time: 03:00 Progress Note C-collar cleared radiographically and clinically.. The patient says she's having some pain in her right jaw around the right TMJ and feels like her jaws offset like she may have broke it. With a laceration to her mentum this would be possible. We'll add a CT maxillofacial. Progress Note #2: Time: 04:05 Progress Note There are some excoriations with no foreign body in the right ear canal. No explanation for the injury. Plan to put her on some ofloxacin to prevent an infection for couple days. [place] syncope score -2 points. Very low risk; 0.7% risk of 30-day serious adverse event. Hydrocodone has helped her pain. Initial Toradol helped her pain as well. Initial ECG Impression Date: Jun 09, 2019 Initial ECG Impression Time: 01:13 Initial ECG Rate: 83 Initial ECG Rhythm: Normal Sinus Initial ECG Intervals: Normal Initial ECG Impression: Normal Comment Normal sinus rhythm without ST elevation, depression or other dysrhythmia seen. Diagnostic Imaging Diagonstic Imaging: Xray Plain Films/CT/US/NM/MRI: chest (1 view. Three-view ribs right) Comments No acute cardio pulmonary processes noted. No acute osseous abnormality noted. Reviewed: Reviewed by Me Diagonstic Imaging: CT (without IV contrast) Plain Films/CT/US/NM/MRI: c-spine, head Comments No acute intracranial process. No acute cervical spine fracture. Reviewed: Reviewed [place] Study, Reviewed by Me Diagonstic Imaging: CT (noncontrast) Plain Films/CT/US/NM/MRI: facial bones Comments Nondisplaced left mandibular body fracture involving tooth #20. Multiple maxillary mandibular teeth carious erosions. Recommend dental examination. Tympanic plate fracture of the temporal bone right side minimally displaced Reviewed: Reviewed [place] Study, Reviewed by Me, Discussed w/Radiologist (Dr. Mccray radiology) Departure Impression Primary Impression: Syncopal episodes Qualified Codes: R55 - Syncope and collapse Additional Impressions: Bruised rib Qualified Codes: S20.211A - Contusion of right front wall of thorax, initial encounter Laceration of chin without complication Qualified Codes: S01.81XA - Laceration without foreign body of other part of head, initial encounter Open fracture of temporal bone Qualified Codes: S02.19XB - Other fracture of base of skull, initial encounter for open fracture Disposition: HOME, SELF-CARE Condition: Improved Departure-Patient Inst. Decision time for Depature: 05:14 Referrals: RASHIDA NOLAN MD, HOLLY R MD (PCP/Family) Primary Care Physician AVERY GONZALEZ MD FACP FACC CCDS Patient Instructions: Skull and Facial Fractures, Syncope (Fainting) (DC), Laceration Repair With Stitches (DC) Add. Discharge Instructions: Monday, please call Dr. Gonzalez, cardiology and request follow-up appointment to help determine why you passed out. If you begin to have chest pain, shortness of breath or recurrence of the pattern then please return to the nearest ER for further evaluation. Drink plenty of fluids. 3 drops twice daily of the ofloxacin and your affected ear to help prevent/treat outer ear infection. One capsule with Omnicef twice daily with food for the next week. Probiotics one capsule twice daily for the next week. Do not place anything in your ear except for the medications or sterile water. No hydrogen peroxide, alcohol or other astringents. Please call Dr. Nolan, ear nose and throat to help manage or fractured jaw and temporal bone. Stick to a liquid diet until cleared by your doctor. Tylenol 650 mg every 8 hours as needed for pain. Ibuprofen 800 mg every 8 hours as needed for pain. Hydrocodone one tablet every 4-6 hours as needed to control your pain. It will cause drowsiness and constipation. MiraLAX daily as recommended earlier on the medication. Plan to have the sutures out in about 7-10 days. Lotions to moisturize your face with vitamin E can be helpful. Sunscreen to the face for the next year will help diminish the appearance of the scar. All discharge instructions reviewed with patient and/or family. Voiced understanding. Scripts Hydrocodone Bit/Acetaminophen (Hydrocodone/Acetaminophen 5/325mg Tablet) 1 Tab Tab 1 EACH PO Q4-6HR PRN for PAIN-MODERATE MDD 10 for 3 Days, #12 TAB 0 Refills Prov: KAR WARNER 06/09/19 L.acidoph & Paracasei,B.lactis (Probiotic) 1 Each Capsule 1 EACH PO BID for 7 Days, #14 CAP 0 Refills Prov: KAR WARNER 06/09/19 Cefdinir (Cefdinir) 300 Mg Capsule 300 MG PO BID for 7 Days, #14 CAP 0 Refills Prov: KAR WARNER 06/09/19 Ofloxacin (Ofloxacin) 5 Ml Drops 3 DROPS OT BID for 7 Days, #5 ML 0 Refills Prov: KAR WARNER 06/09/19 Work/School Note: Work Release Form Date Seen in the Emergency Department: Jun 09, 2019 Return to Work: Jun 11, 2019 Restrictions: No Restrictions Copy Copies To 1: AVERY GONZALEZ MD FACP FAC CCDS KAR WARNER Jun 09, 2019 01:21 POS
[2019-06-09 01:24] LABS: BASOPHILS % (AUTO) 0 % (0-10); EOSINOPHILS # (AUTO) 0.1 10^3/uL (0.0-0.3); EOSINOPHILS % (AUTO) 1 % (0-10); HEMATOCRIT 41 % (35-52); LYMPHOCYTES # (AUTO) 1.1 X 10^3 (1.0-4.0); LYMPHOCYTES % (AUTO) 9 % (12-44); MEAN CORPUSCULAR HEMOGLOBIN 32 PG (25-34); MEAN CORPUSCULAR HGB CONC 35 G/DL (32-36); MEAN CORPUSCULAR VOLUME 94 FL (80-99); MEAN PLATELET VOLUME 8.3 FL (7.4-10.4); MONOCYTES % (AUTO) 0 % (0-12); NEUTROPHILS # (AUTO) 11.6 X 10^3 (1.8-7.8); NEUTROPHILS % (AUTO) 90 % (42-75); PLATELET COUNT 276 10^3/uL (130-400); RED CELL DISTRIBUTION WIDTH 12.2 % (10.0-14.5); WHITE BLOOD COUNT 12.9 10^3/uL (4.3-11.0)
[2019-06-09 01:39] LABS: ALANINE AMINOTRANSFERASE 21 U/L (0-55); ALBUMIN 4.1 GM/DL (3.2-4.5); ALKALINE PHOSPHATASE 53 U/L (40-136); BILIRUBIN,TOTAL 0.3 MG/DL (0.1-1.0); BUN/CREATININE RATIO 12; CALCIUM 8.5 MG/DL (8.5-10.1); CARBON DIOXIDE 21 MMOL/L (21-32); CHLORIDE 106 MMOL/L (98-107); GFR ESTIMATED > 60; GLUCOSE 117 MG/DL (70-105); POTASSIUM 3.9 MMOL/L (3.6-5.0); SODIUM 140 MMOL/L (135-145); TOTAL PROTEIN 6.6 GM/DL (6.4-8.2)
[2019-06-09 02:43] LABS: BILIRUBIN,URINE NEGATIVE (NEGATIVE); CLARITY,URINE CLEAR; COLOR,URINE YELLOW; GLUCOSE, URINE (UA) NEGATIVE (NEGATIVE); KETONES,URINE NEGATIVE (NEGATIVE); LEUKOCYTE ESTERASE ,URINE NEGATIVE (NEGATIVE); NITRITE,URINE NEGATIVE (NEGATIVE); PROTEIN,URINE NEGATIVE (NEGATIVE)
[2019-06-09 02:57] LABS: BACTERIA,URINE MODERATE /HPF; HYALINE CASTS, URINE 0-2 /LPF
[2019-06-09 02:58] LABS: AMPHETAMINE SCREEN, URINE NEGATIVE (NEGATIVE); BARBITURATE SCREEN URINE NEGATIVE (NEGATIVE); BENZODIAZEPINES SCREEN URINE NEGATIVE (NEGATIVE); CANNABINOID SCREEN, URINE POSITIVE (NEGATIVE); COCAINE SCREEN URINE NEGATIVE (NEGATIVE); METHADONE STAT NEGATIVE (NEGATIVE); METHAMPHETAMINE SCREEN URINE S NEGATIVE (NEGATIVE); OPIATE SCREEN URINE NEGATIVE (NEGATIVE); OXYCODONE STAT NEGATIVE (NEGATIVE); PROPOXYPHENE STAT NEGATIVE (NEGATIVE); TRICYCLIC ANTIDEPRESSANTS SCRE NEGATIVE (NEGATIVE)
--- NOTE | 2019-06-09 03:01 | NUR ---
PROVIDER IN ROOM, REMOVED C COLLAR AT 0300.
[2019-06-09 03:14] LABS: EOSINOPHILS % (MANUAL) 2 %; LYMPHOCYTES % (MANUAL) 10 %; MONOCYTES % (MANUAL) 1 %; NEUTROPHILS % (MANUAL) 87 %
[2019-06-09] MEDS ORDERED: HYDROcodone/APAP 5 MG/325 MG (LORTAB) TAB PO ONE (03:15)
[2019-06-09] MEDS ORDERED: OFLO5DRO7 OT (03:50)
--- NOTE | 2019-06-09 05:06 | Diagnostic Imaging Report ---
INDICATION: Fall. Trauma. COMPARISON: 06/06/2012 FINDINGS: Single frontal view of the chest demonstrates normal heart size and pulmonary vascularity. The lungs are well aerated and clear. No large pleural effusion or pneumothorax is seen. The visualized osseous structures show no acute abnormalities. IMPRESSION: 1. No acute cardiopulmonary process. Dictated by: Dictated on workstation # [id number]
--- NOTE | 2019-06-09 05:13 | Diagnostic Imaging Report ---
INDICATION: Fall COMPARISON: None FINDINGS: Three views of the right ribs were obtained. There is no fracture, dislocation, or other acute bony abnormality identified. Visualized portions of the right lung are clear. The surrounding soft tissues appear unremarkable. No radiopaque foreign bodies are seen. IMPRESSION: No healing or displaced right-sided rib fractures. Dictated by: Dictated on workstation # [id number]
[2019-06-09] MEDS ORDERED: L.AC1CAP6 PO (05:21)
[2019-06-09] MEDS ORDERED: ACHD5005 PO (05:21)
[2019-06-09] MEDS ORDERED: CEFD300C3 PO (05:21)
[2019-06-09 05:27] VITALS: BP 99/60
[2019-06-09] MEDS ORDERED: RX-HYDROCODONE/APAP 5/325 MG #4 TAB PK PO PRN (05:30)
[2019-06-09] MEDS ORDERED: CEFDINIR 300 MG (OMNICEF) CAP PO ONE (05:30)
--- NOTE | 2019-06-09 07:13 | Diagnostic Imaging Report ---
PROCEDURE: CT maxillofacial without contrast. TECHNIQUE: Multiple contiguous axial images were obtained through the facial bones without the use of intravenous contrast. Auto Exposure Controls were utilized during the CT exam to meet ALARA standards for radiation dose reduction. INDICATION: Fall with trauma. COMPARISON: 04/07/2018 FINDINGS: There is nondisplaced subtle obliquely oriented fracture of the left mandibular body, which involves tooth #20. Multiple advanced maxillary and mandibular dental caries are also identified bilaterally. There are several periapical maxillary lucencies suggestive of periapical abscesses. Bilateral temporomandibular joint spaces are maintained. Bilateral zygomatic arches are intact. Medial and lateral pterygoid plates are intact as well. No maxillary fracture is seen. Paranasal sinuses show mild scattered mucosal thickening. No abnormal air-fluid levels are seen. There is no fracture of the paranasal sinuses. Bilateral nasal bones are intact. Nasal septum is deviated to the right, anteriorly, but is otherwise intact as well. There is moderate mucosal thickening of the turbinates. Note is also made of bilateral mariaelena bullosa of the middle turbinates. There is no fracture of the orbits. Globes are symmetric. No unexpected radiopaque foreign bodies are seen. Overlying soft tissue structures are unremarkable as well. There is no soft tissue emphysema. IMPRESSION: 1. Subtle nondisplaced left mandibular body fracture. 2. Advanced bilateral maxillary and mandibular dental caries. Dictated by: Dictated on workstation # [id number]
--- NOTE | 2019-06-09 09:18 | Diagnostic Imaging Report ---
PROCEDURE: CT head and CT cervical spine without contrast. TECHNIQUE: Multiple contiguous axial images were obtained through the brain and cervical spine without the use of intravenous contrast. Sagittal and coronal reformations through the cervical spine were then performed. Auto Exposure Controls were utilized during the CT exam to meet ALARA standards for radiation dose reduction. INDICATION: Unwitnessed fall. Trauma to the head. COMPARISON: 04/07/2018 FINDINGS: CT head: Ventricles and cortical sulci are normal in size and contour. There is no midline shift or mass-effect. No acute intra-axial hemorrhage is seen. There are no abnormal areas of increased or decreased density to suggest acute hemorrhage or edema. No extra-axial masses or collections are present. The bony calvarium is intact. The visualized paranasal sinuses show mild scattered mucosal thickening. The mastoid air cells are clear. CT cervical spine: Evaluation of the static alignment shows reversal of normal lordotic curvature of the cervical spine. Findings may be related to positioning, as well as underlying spasm. There is no significant anteroretrolisthesis. There is no evidence of jumped facets. Vertebral body heights are maintained. There is no evidence of acute fracture. No bony fragments are seen within the spinal canal. No significant degenerative changes are identified. Pre and paravertebral soft tissue structures are unremarkable. Included portions of the lung apices show no additional acute abnormalities. IMPRESSION: 1. No acute intracranial abnormality. No CT evidence of mass, acute infarct or intracranial hemorrhage. 2. No acute fracture or dislocation of the cervical spine. Dictated by: Dictated on workstation # [id number]
== END 2019-06-09 05:30 | disposition home or self-care (01) ==
LOC: EDUNIT# 01:08 → ER 01:10
DX: S02.19XB Other fracture of base of skull, initial encounter for open fracture (principal); S20.211A Contusion of right front wall of thorax, initial encounter; R55 Syncope and collapse; F17.210 Nicotine dependence, cigarettes, uncomplicated; Z23 Encounter for immunization; Z88.0 Allergy status to penicillin; Z88.2 Allergy status to sulfonamides; Z88.1 Allergy status to other antibiotic agents; Z90.710 Acquired absence of both cervix and uterus; W18.39XA Other fall on same level, initial encounter
CPT/HCPCS: 36415; 70450; 70486; 71045; 71100; 72125; 80053; 80306; 81000; 83880; 84484; 85007; 85027; 86141; 90471; 90715; 93005; 96361; 96374

== ENCOUNTER → 2019-07-05 | Outpatient (CLI) | payer SELFPAY ==
[2019-07-05] VITALS (38 sets, daily range): BP systolic 88–112; BP diastolic 55–82
[~2019-07-05] MED LIST changes: +CEFD300C3 PO; +L.AC1CAP6 PO; +NS IV 1000 ML 1,000 ML ONE; +OFLO5DRO7 OT
--- NOTE | 2019-07-05 12:29 | NUR ---
ns 1000cc bag hung at tko to L forearm.
--- NOTE | 2019-07-05 13:50 | NUR ---
dr not present for test, pt had heart rate that dropped from 93 to 80 at least three times during the test. test was negative pt did not pass out. pt never felt any symptoms during test. dc'd iv catheter intact, drsg applied. dr olvera said it was ok to dimiss pt. pt ambulated to car.
--- NOTE | 2019-07-16 16:55 | Cardiology Tilt Table Test ---
Cardiology-Tilt Table Test Tilt Table Test Date 07/16/19 Patient was tilted to 75 degrees for [10] minutes, then returned to supine position, given [2] sublingual nitroglycerin tablets, then tilted again to 75 degrees for [15] minutes. During test, patient was: asymptomatic In Conclusion;: Negative Tilt Table Test Mirela DIEZ MD Jul 16, 2019 16:55 POS
== END ==
LOC: CARD 11:53
PROVIDERS: ATTEND Internal Medicine Interventional Cardiology
DX: R55 Syncope and collapse (principal); Z72.0 Tobacco use
CPT/HCPCS: 93306; 93660

== ENCOUNTER 2019-08-05 | Outpatient (RCR) | payer OTHER ==
[~2019-08-05] MED LIST changes: -NS IV 1000 ML 1,000 ML ONE; +OFLO5DRO33 OT; -OFLO5DRO7 OT
== END 2019-10-06 | disposition home or self-care (01) ==
LOC: CARD
PROVIDERS: ATTEND Internal Medicine Interventional Cardiology
DX: R55 Syncope and collapse (principal); Z72.0 Tobacco use
CPT/HCPCS: 93270

== ENCOUNTER 2020-04-19 07:11 | Emergency (ER) | payer SELFPAY ==
[~2020-04-19] VITALS: Ht 157 cm; Wt 54.0 kg
[2020-04-19] MEDS ORDERED: HYDROcodone/APAP 5 MG/325 MG (LORTAB) TAB PO ONE (08:45)
--- NOTE | 2020-04-19 09:21 | Diagnostic Imaging Report ---
INDICATION: Hand pain TECHNIQUE: Three views of the right hand. CORRELATION STUDY: None FINDINGS: There is normal alignment and appearance of the osseous structures of the hand. The joint spaces are maintained. There is no acute fracture. Soft tissues are unremarkable. IMPRESSION: 1. Negative for acute bony abnormality of the hand. Dictated by: Dictated on workstation # [id number]
--- NOTE | 2020-04-19 09:23 | Diagnostic Imaging Report ---
INDICATION: Foot pain, fall from porch.. TECHNIQUE: 3 views of the left foot CORRELATION STUDY: None FINDINGS: Abnormal lucency through the proximal phalanx of the great toe suggested nondisplaced fracture. Age of this is indeterminate. This does involve the articular surface. Remaining osseous structures and joint spaces are otherwise maintained. Soft tissues appearing unremarkable. IMPRESSION: 1. Abnormal lucency of the proximal phalanx of the great toe. Does suggest fracture deformity. Age of this however is indeterminate. Correlation symptoms. Remaining osseous structures otherwise unremarkable. Dictated by: Dictated on workstation # [id number]
[2020-04-19] MEDS ORDERED: ACHD5005 PO (09:42)
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
[2020-04-19 09:48] VITALS: BP 137/84
== END 2020-04-19 09:48 | disposition home or self-care (01) ==
LOC: EDUNIT# 07:11 → ER 07:12
DX: S92.415A Nondisplaced fracture of proximal phalanx of left great toe, initial encounter for closed fracture (principal); S60.221A Contusion of right hand, initial encounter; F17.210 Nicotine dependence, cigarettes, uncomplicated; Z88.0 Allergy status to penicillin; Z88.2 Allergy status to sulfonamides; Z88.1 Allergy status to other antibiotic agents; W17.89XA Other fall from one level to another, initial encounter; W22.8XXA Striking against or struck by other objects, initial encounter
CPT/HCPCS: 73130; 73630

== ENCOUNTER → 2020-05-04 | Outpatient (CLI) | payer SELFPAY ==
--- NOTE | 2020-05-04 10:20 | Diagnostic Imaging Report ---
INDICATION: Great toe fracture, followup. TIME OF EXAM: 9:40 AM Correlation is made with prior radiograph from 04/19/2020. 2 views of the left great toe were obtained. Horizontally oriented fracture of the proximal phalanx of the great toes again noted. Fracture line does appear to extend to the interphalangeal joint surface. No displacement is seen. Remaining phalanges are intact. Metatarsals are intact. IMPRESSION: No significant change in the obliquely oriented fracture of the proximal phalanx great toe. Fracture line remains clearly visible. Dictated by: Dictated on workstation # [id number]
== END ==
LOC: ORTHO 09:04
PROVIDERS: ATTEND Orthopaedic Surgery
DX: S92.415D Nondisplaced fracture of proximal phalanx of left great toe, subsequent encounter for fracture with routine healing (principal)
CPT/HCPCS: 73660

== ENCOUNTER 2020-12-02 17:11 | Emergency (ER) | payer BC, OTHER ==
[~2020-12-02] VITALS: Ht 157 cm; Wt 54.0 kg
[~2020-12-02 17:11] MED LIST changes: -CIPR500T4 PO; +CIPR500T5 PO
--- NOTE | 2020-12-02 17:35 | ED EENT ---
History of Present Illness General Chief Complaint: Dental Problems/Pain Stated Complaint: POSTOP JAW SURGERY - SWELLING Source: patient Exam Limitations: no limitations History of Present Illness Date Seen by Provider: December 02, 2020 Time Seen by Provider: 17:30 Initial Comments To ER with left lower jaw swelling. She broke her jaw about a year ago and has had some trouble with recurrent infections since then at this location. She followed with a physician in [place] last week and had conscious sedation with removal of hardware in the office. Starting today she noticed some puslike drainage from the wound. She states that the overall swelling seems to be reducing. No fevers or chills. She is still on clindamycin. Timing/Duration: abrupt Severity: moderate Associated Symptoms: denies symptoms Allergies and Home Medications Allergies Coded Allergies: Penicillins (Unverified Allergy, Mild, 02/20/09) penicillin G (Verified Allergy, Unknown, 09/01/05) sulfamethoxazole (Verified Allergy, Unknown, 09/20/17) trimethoprim (Verified Allergy, Unknown, 09/20/17) Home Medications Cefdinir 300 Mg Capsule, 300 MG PO BID Prescribed by: KAR WARNER on 06/09/19520 Ciprofloxacin HCl 500 Mg Tablet, 500 MG PO BID Prescribed by: ELOISE AMARO on 05/26/19 150 Famotidine 40 Mg Tablet, 40 MG PO HS Prescribed by: ELOISE AMARO on 05/26/19 150 Hydrocodone Bit/Acetaminophen 1 Tab Tab, 1 EACH PO Q4-6HR PRN for PAIN-MODERATE Prescribed by: KAR WARNER on 06/09/19520 Hydrocodone/Acetaminophen 1 Each Tablet, 1 EACH PO Q4H PRN for PAIN-MODERATE (5- 7) Prescribed by: LUZ SANCHEZ on 04/19/20 0943 L.acidoph & Paracasei,B.lactis 1 Each Capsule, 1 EACH PO BID Prescribed by: KAR WARNER on 06/09/19 05 Ofloxacin 5 Ml Drops, 3 DROPS OT BID Prescribed by: KAR WARNER on 06/09/19 0350 Pantoprazole Sodium 40 Mg Tablet.dr, 40 MG PO DAILY Prescribed by: ELOISE AMARO on 05/26/19 150 Patient Home Medication List Home Medication List Reviewed: Yes Review of Systems Review of Systems Constitutional: see HPI Eyes: No Symptoms Reported Ears: No Symptoms Reported Nose: no symptoms reported Mouth: no symptoms reported Throat: no symptoms reported Respiratory: no symptoms reported Cardiovascular: no symptoms reported Musculoskeletal: no symptoms reported Skin: no symptoms reported Neurological: No Symptoms Reported Hematologic/Lymphatic: No Symptoms Reported Past Luzikop-Orxakh-Fhmjle Hx Patient Social History Drug of Choice: POT Type Used: Cigarettes Recent Hopitalizations: No Immunizations Up To Date Tetanus Booster (TDap): Unknown Seasonal Allergies Seasonal Allergies: Yes Past Medical History Surgeries: Yes (L KNEE FLUID REMOVAL, FX JAW) Hysterectomy, Oophorectomy Respiratory: No Cardiac: No Neurological: No Reproductive Disorders: No 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 oz. 63.208587gr; 21.00 BMI Method:Stated General Appearance: WD/WN, no apparent distress Eyes: bilateral eye normal inspection, bilateral eye PERRL, bilateral eye EOMI Ears: bilateral ear auricle normal, bilateral ear canal normal, bilateral ear TM normal Neck: non-tender, full range of motion, other (To the inferior aspect of the left side of the mandible there is some swelling. There are 2 incisions that are held together by sutures which appear to be Monocryl suture. Around these is about 1 cm of erythema and local fluctuance. These 4 sutures were removed. I was able to express a small to moderate amount of purulent material from the anterior wound and cellulitis there is fluid from the posterior wound. Culture was collected. Sutures remain intact on the buccal surface of the bottom jaw.) Respiratory: no respiratory distress, no accessory muscle use Neurologic/Psychiatric: alert, normal mood/affect, oriented x 3 Skin: normal color, warm/dry Procedures/Interventions Suture Size: 5-0 Progress/Results/Core Measures Results/Orders My Orders Orders - GERALD ESTRADA APRN Ct Maxillofacial Wo (12/02/20 17:29) Wound Culture (12/02/20 17:29) Ceftriaxone For Im Use (Rocephin For Im (12/02/20 17:45) Lidocaine 1% Inj 20 Ml (Xylocaine 1% Inj (12/02/20 17:45) Medications Given in ED Current Medications Medications Dose Ordered Sig/Kelley Route Start Time Stop Time Status Last Admin Dose Admin Lidocaine HCl 2.1 ml ONCE ONCE INJ 12/02/20 17:45 12/02/20 17:46 DC 12/02/20 17:56 2.1 ML Vital Signs/I&O 12/02/20 17:15 Temp 36.7 Pulse 72 Resp 16 B/P (MAP) 154/90 (111) Pulse Ox 97 O2 Delivery Room Air Diagnostic Imaging Diagonstic Imaging: CT Comments NAME: YENY CARR [facility] REC#: [id number] PT STATUS: REG ER : 1985 PHYSICIAN: GERALD ESTRADA APRN ADMIT DATE: 12/02/20/ER Signed Date of Exam:12/02/20 CT MAXILLOFACIAL WO PROCEDURE: CT maxillofacial without contrast. TECHNIQUE: Multiple contiguous axial images were obtained through the facial bones without the use of intravenous contrast. Auto Exposure Controls were utilized during the CT exam to meet ALARA standards for radiation dose reduction. INDICATION: Pain and swelling after hardware removal from the left side of the jaw. COMPARISON: 06/09/2019. FINDINGS: The patient is noted to be edentulous, new since the prior exam. There is soft tissue inflammation and edema in the soft tissues lateral and just inferior to the left body of the mandible. There is likely phlegmon within this area without evidence of loculated collection to suggest abscess. Mildly prominent reactive cervical lymph nodes are seen in the left neck. No evidence of osteomyelitis involving the mandible. The bilateral TMJs are intact. No acute facial fracture is identified. The globes and orbits are symmetric and unremarkable. Mild mucosal thickening is seen in the bilateral ethmoid sinuses and right frontal sinus. The mastoid air cells are clear. The included intracranial contents are unremarkable. The upper cervical spine is normal. IMPRESSION: Phlegmon with soft tissue inflammation and edema in the soft tissues lateral and just inferior to the body of the mandible on the left. No loculated collection is seen to suggest abscess formation. No CT evidence of osteomyelitis. Dictated by: Dictated on workstation # [id number] Dict: 12/02/201757 Trans: 12/02/201805 [facility] [id number] Interpreted by: AAKASH BARRERA DO Electronically signed by: AAKASH BARRERA DO 12/02/201805 Departure Communication (Admissions) Family Conversation NAME: YENY CARR [facility] REC#: [id number] PT STATUS: REG ER : 1985 PHYSICIAN: GERALD ESTRADA APRN ADMIT DATE: 12/02/20/ER Signed Date of Exam:12/02/20 CT MAXILLOFACIAL WO PROCEDURE: CT maxillofacial without contrast. TECHNIQUE: Multiple contiguous axial images were obtained through the facial bones without the use of intravenous contrast. Auto Exposure Controls were utilized during the CT exam to meet ALARA standards for radiation dose reduction. INDICATION: Pain and swelling after hardware removal from the left side of the jaw. COMPARISON: 06/09/2019. FINDINGS: The patient is noted to be edentulous, new since the prior exam. There is soft tissue inflammation and edema in the soft tissues lateral and just inferior to the left body of the mandible. There is likely phlegmon within this area without evidence of loculated collection to suggest abscess. Mildly prominent reactive cervical lymph nodes are seen in the left neck. No evidence of osteomyelitis involving the mandible. The bilateral TMJs are intact. No acute facial fracture is identified. The globes and orbits are symmetric and unremarkable. Mild mucosal thickening is seen in the bilateral ethmoid sinuses and right frontal sinus. The mastoid air cells are clear. The included intracranial contents are unremarkable. The upper cervical spine is normal. IMPRESSION: Phlegmon with soft tissue inflammation and edema in the soft tissues lateral and just inferior to the body of the mandible on the left. No loculated collection is seen to suggest abscess formation. No CT evidence of osteomyelitis. Dictated by: Dictated on workstation # [id number] Dict: 12/02/201757 Trans: 12/02/201805 [facility] [id number] Interpreted by: AAKASH BARRERA DO Electronically signed by: AAKASH BARRERA DO 12/02/201805 She has an appointment tomorrow with her surgeon in [place] for follow-up. Impression Primary Impression: Postoperative seroma Qualified Codes: L76.34 - Postprocedural seroma of skin and subcutaneous tissue following other procedure Disposition: HOME, SELF-CARE Condition: Stable Departure-Patient Inst. Decision time for Depature: 17:34 Referrals: [facility] [place] ([place]) Primary Care Physician Patient Instructions: Wound Care (DC) Add. Discharge Instructions: Keep the follow-up appointment with your surgeon tomorrow. Continue the antibiotics. Culture should be resulted within about 48 hours. All discharge instructions reviewed with patient and/or family. Voiced understanding. GERALD ESTRADA HABILITATION SPECIALIST December 02, 2020 17:35
[2020-12-02] MEDS ORDERED: LIDOCAINE 1% INJ 20 ML 20 ML VIAL INJ ONE (17:45)
[2020-12-02] MEDS ORDERED: cefTRIAXone 1,000 MG/2.86 ml vial (IM ONLY) IM SCH (17:45)
--- NOTE | 2020-12-02 18:06 | Diagnostic Imaging Report ---
PROCEDURE: CT maxillofacial without contrast. TECHNIQUE: Multiple contiguous axial images were obtained through the facial bones without the use of intravenous contrast. Auto Exposure Controls were utilized during the CT exam to meet ALARA standards for radiation dose reduction. INDICATION: Pain and swelling after hardware removal from the left side of the jaw. COMPARISON: 06/09/2019. FINDINGS: The patient is noted to be edentulous, new since the prior exam. There is soft tissue inflammation and edema in the soft tissues lateral and just inferior to the left body of the mandible. There is likely phlegmon within this area without evidence of loculated collection to suggest abscess. Mildly prominent reactive cervical lymph nodes are seen in the left neck. No evidence of osteomyelitis involving the mandible. The bilateral TMJs are intact. No acute facial fracture is identified. The globes and orbits are symmetric and unremarkable. Mild mucosal thickening is seen in the bilateral ethmoid sinuses and right frontal sinus. The mastoid air cells are clear. The included intracranial contents are unremarkable. The upper cervical spine is normal. IMPRESSION: Phlegmon with soft tissue inflammation and edema in the soft tissues lateral and just inferior to the body of the mandible on the left. No loculated collection is seen to suggest abscess formation. No CT evidence of osteomyelitis. Dictated by: Dictated on workstation # [id number]
[2020-12-02 18:13] VITALS: BP 154/90
== END 2020-12-02 18:13 | disposition home or self-care (01) ==
LOC: EDUNIT# 17:11 → ER 17:15
DX: L76.34 Postprocedural seroma of skin and subcutaneous tissue following other procedure (principal); Z88.0 Allergy status to penicillin; Z88.2 Allergy status to sulfonamides; Z88.1 Allergy status to other antibiotic agents
CPT/HCPCS: 70486; 87070; 87205

== ENCOUNTER → 2022-04-26 | Outpatient (CLI) | payer BC ==
--- NOTE | 2022-04-26 15:56 | Diagnostic Imaging Report ---
INDICATION: Pain which travels down the arm. EXAMINATION: Right upper extremity MRI without contrast on 04/26/2022. FINDINGS: There is a marker along the posterior aspect of the elbow. Underlying the marker, the distal triceps tendon appears intact and unremarkable. The brachialis and distal biceps tendon are intact. The extensor tendon origin appears unremarkable. There is minimal high signal overlying the flexor tendon origin suggesting mild tenosynovitis. No focal tear is appreciated. The osseous structures demonstrate normal signal intensity. There is no joint effusion. The ulnar collateral and radial collateral ligaments are grossly intact on this noncontrast examination. IMPRESSION: 1. Findings of mild tendinosis along the flexor tendon origin. The remaining tendons are unremarkable. 2. The ligaments and osseous structures are unremarkable. Dictated by: Dictated on workstation # [id number]
== END ==
LOC: RAD 13:15
PROVIDERS: ATTEND Nurse Practitioner
DX: M54.12 Radiculopathy, cervical region (principal)
CPT/HCPCS: 73221

== ENCOUNTER → 2022-05-20 | Outpatient (CLI) | payer BC ==
--- NOTE | 2022-05-20 11:35 | Diagnostic Imaging Report ---
PROCEDURE: MR imaging cervical spine without contrast. TECHNIQUE: Multiplanar, multisequence MR imaging of the cervical spine was performed without contrast. INDICATION: Right upper extremity pain, neck pain. COMPARISON: No priors for direct comparison. Study, however, correlated with CT cervical spine dated 06/09/2019. FINDINGS: Cervical spinal cord has a normal volume, normal morphology, and a normal signal intensity throughout. CSF circumscribes the cord at each vertebral body and disc space level with spinal canal widely patent. No disc herniation. Discs are well hydrated and maintain normal stature. The neural foramina are widely patent throughout. No paravertebral mass, hemorrhage, or fluid collection. No acute epidural abnormality. Ligamentous structures are intact. No bone contusion, marrow edema, or signal abnormality. IMPRESSION: Normal MRI cervical spine. Dictated by: Dictated on workstation # [id number]
== END ==
LOC: RAD 08:00
PROVIDERS: ATTEND Nurse Practitioner
DX: M54.12 Radiculopathy, cervical region (principal)
CPT/HCPCS: 72141